=== PATIENT | female | born 1975 | race Caucasian/White ===

== ENCOUNTER → 2022-12-11 13:27 | Outpatient (CLI) | payer OTHER, SELFPAY ==
--- NOTE | 2022-12-12 16:53 | DIET.CONS ---
Addendum entered by Belinda Jouse 12/12/22 16:55: Visit conducted on 12/11/22 Original Note: Dietary Consultation Note Assessment: 47y F attending RD visit for help with diet to support preDM (A1c 6.3). Pt has been told she had elevated BGs since right after high school. Never to point of DM2 and never has checked BGs using glucometer. Pt with hx HTN, at last PCP visit 150/90. 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 Pt lives with and mother in law. Mother in law is agreeable to eat whatever and likes what pt likes to eat. MIL, however, does not cook so was transition over the past year redoing home kitchen with supplies pt is comfortable with (like good pans). with IBS following FODMAP diet. No stone fruit, broccoli or cauliflower, no beans or lentils, no nuts or seeds. His dietary needs are a moving target so pose barrier for meal prep. Pt ideally would like to follow vegan diet and add meat for . Pts dad follows low fat vegan diet. 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 Pts father told kids dairy milk was ?evil? so she has never had much dairy in life, currently drinks almond milk. Currently pt doing Hello Fresh four times per week-omnivorous. Goes on walks with dogs daily and does 15min Pilates, feels more active on weekends, [place]. Vitamin D deficiency: takes 2,000IU one day then 3,000IU the next since August when labs were drawn at 17 L. Prior to latest labs being drawn: pt was drinking etoh nightly- red wine 10oz with dinner and into evening and snacking at her desk: pretzels, popcorn Diet Recall: B: oatmeal or eggs or toast with apple and pb L: leftovers- soup or leftover portions of dinner- frozen veggies with stock, sometimes beans and lentils, pt loves soup and could eat for all meals. D: Hello Fresh Pt not bothered by eating the same foods repeatedly, would like to start meal prepping on weekends. Ideally something everyone could share with customized additions for each family member based on dietary needs. Pt was not weighed during visit. Nutrition Diagnosis: altered nutrition related laboratory values (A1c, BP) r/t undesirable food choices and physical inactivity aeb A1c 6.3, BP 150/90, recent hx excessive intake etoh, pt reports snacking on refined carbohydrates, pt with some daily physical activity but sedentary job. Interventions: 1. Educated pt on blood glucose and A1c tests, how food and exercise impact readings. Discussed importance of sustainable plan. 2. Educated pt on carbohydrate content of foods, recommendations for carb limits at meals and preferred carb sources which are high in fiber and unprocessed. 3. Recc pt walk 10 min after each meal to support healthy blood glucose and other exercise as able including strength training. 4. Collaborated on problem solving meal planning to meet nutrition needs of pt, spouse and MIL. Came up with idea to make soup bases everyone can enjoy with additions meal prepped for individuals (ie. Taco soup- meat for - beans and veggies for pt; faustino soup-meat for - veggies and tofu for pt). Also provided recipe sheet for Power Bowls which can be prepped and customized per individual. EER: 30-45g CHO per meal Monitoring/Evaluations: f/u in 6w to continue intervention development and education. Electronically Signed by: Belinda Josue 12/12/22 16:53 Clinical Dietitian [address] [address]
== END ==
PROVIDERS: PCP Naturopath; Referring Provider Naturopath; Visit Provider Naturopath
DX: R73.03 Prediabetes (principal); Z71.3 Dietary counseling and surveillance
CPT/HCPCS: 97802

== ENCOUNTER → 2023-01-22 13:52 | Outpatient (CLI) | payer OTHER, SELFPAY ==
--- NOTE | 2023-01-22 14:27 | DIET.OUTPTC ---
Dietary Outpatient Consultation Note Consultation Date: 01/22/[address] 47[address] f/u for preDM. Pt states carb counting and diet are going well. CHO counting: feels that CHO counting is simple, had a small adjustment period (serving size, measuring, etc). Has been doing a lot of Hello Fresh. Split one portion with [id number]. Will substitute potatoes with other vegetables.? Summer they shift diet to salads and grilling.? Higher fiber intake is going ?fine.? Does get gassy but works at home so does not worry about it. Would like to see Dr. Becker and RD at [facility]. [id number]-[id number] is easy going about most of the changes, but does her own thing. Pt has quit worrying about her.? Has been working outside more.? PA: pt usually does a lot of hikes. However, less lately d/t to dog accommodations. Predicts more hikes this summer.? Would like to come back in summer, however, believes Fall will be more challenging.? Interventions 1. Recommended ways to add more of the items she would like but does not to current meals to personalize. 2. Recommended FODMAP resources for pts .? F/u: follow-up appointment in June to discuss how the summer went and discuss predicted challenges to come in the Fall. Electronically Signed by: Belinda Josue 01/22/23 14:27 Clinical Dietitian [address] [id number]
== END ==
PROVIDERS: PCP Naturopath; Referring Provider Naturopath; Visit Provider Naturopath
DX: R73.03 Prediabetes (principal); Z71.3 Dietary counseling and surveillance
CPT/HCPCS: 97803